=== PATIENT | male | born 2000 | race Two or more races ===

== ENCOUNTER 2020-07-07 12:06 | Emergency (ER) | payer SELFPAY ==
[~2020-07-07] VITALS: Ht 172.7 cm; Wt 79.5 kg
[2020-07-07 12:15] VITALS: BP 141/75
--- NOTE | 2020-07-07 12:41 | PHYS DOC ---
Past Medical History Past Medical History: Other Additional Past Medical Histor: COVID-/APR 2020 Past Surgical History: Other Additional Past Surgical Histo: LEFT HAND ORIF WITH REMOVAL OF HARDWARE Smoking Status: Never Smoker Alcohol Use: None Drug Use: None General Adult EDM: Chief Complaint: LACERATION/AVULSION HPI: HPI: Patient is a 19 year old male who presents with a right fifth finger laceration. Patient was working on a car in a school class when his hand slipped and he cut it on a sharp metal edge of an exhaust. Patient states he is up-to-date on his vaccines. Patient cleaned the wound for 2 minutes under running water before going to the nurses office at his school. The nurse then cleaned the wound under running water again. Pain is stated to be a 6 out of 10 with movement and 0 out of 10 with rest. Patient has no radiation of pain or associated symptoms. Review of Systems: Review of Systems: Constitutional: Denies fever or chills Eyes: Denies redness or eye pain HENT: Denies nasal congestion or sore throat Respiratory: Denies cough or shortness of breath Cardiovascular: Denies chest pain or palpitations GI: Denies abdominal pain, nausea, or vomiting : Denies dysuria or hematuria Musculoskeletal: Denies back pain or joint pain Integument: Denies rash or erythema. Neurologic: Denies headache, focal weakness or sensory changes Complete systems were reviewed and found to be within normal limits, except as documented in this note. Heart Score: C/O Chest Pain: N/A Family History: Family History: No pertinent family history. Allergies: Allergies: Allergies Coded Allergies Type Severity Reaction Last Updated Verified No Known Drug Allergies 05/01/14 No Physical Exam: PE: Constitutional: Well developed, well nourished, no acute distress, non-toxic appearance HENT: Normocephalic, atraumatic Eyes: PERRL, EOMI, conjunctiva normal, no discharge Neck: Normal range of motion, no tenderness, supple Lungs & Thorax: No respiratory distress, equal chest rise and fall. Covid-19 positive in April 2020. Abdomen: Soft, no tenderness Skin: Warm, dry, no erythema, no rash Back: No tenderness, no CVA tenderness Neurologic: Alert and oriented X 3, normal motor function, normal sensory function, no focal deficits noted Psychologic: Affect normal, judgment normal Extremities: Right fifth finger laceration on lateral aspect. 1.5 cm in length with 1 cm skin flap. Wound appears clean and edges can be approximated easily. Suture repair was performed (see procedure for details). Current Patient Data: Vital Signs: Vital Signs Date Time Temp Pulse Resp B/P (MAP) Pulse Ox O2 Delivery O2 Flow Rate FiO2 07/07/20 12:15 98.4 82 17 141/75 (97) 100 Room Air 98.4 Course & Med Decision Making: Course & Med Decision Making Patient is a 19 year old male who presents with a right fifth finger laceration. Patient was working on a car in a school class when his hand slipped and he cut it on a sharp metal edge of an exhaust. Patient states he is up-to-date on his vaccines including tetanus. Wound was clean and dressed with Steri-Strips upon arrival to the ED. Pain was well controlled. Dressing was taken down and wound was explored. It was recommended to apply stitches based on location and extent of wound. Patient agreed to undergo primary closure of wound. Wound was cleaned and sutures were applied to achieve good approximation (see procedure notes for details). Sterile dressing and aluminum finger splint was applied. Patient stable for discharge with outpatient follow-up with PCP. Discussed findings and plan (including wound care instructions) with patient and mother, who acknowledged understanding and agreement. [place] Disclaimer: [place] Disclaimer: This electronic medical record was generated, in whole or in part, using a voice recognition dictation system. Departure Departure Impression: Primary Impression: Finger laceration Qualified Codes: S61.216A - Laceration without foreign body of right little finger without damage to nail, initial encounter Disposition: 01 DC HOME SELF CARE/HOMELESS Condition: STABLE Referrals: REJI ROBERT (PCP) Patient Instructions: Laceration Care, Adult, [id number] Additional Instructions: Do not soak your wound. You may shower. Clean wound daily with soap and water. Change dressing 2 times daily. Use over the counter antibiotic ointment with each dressing change. Sutures need to be removed in 10 days. Present to your family doctor or local urgent care for removal. You may also present to the ED but it will be an additional visit/charge. Maintain finger splint to prevent sutures from breaking unless cleaning the wound. Use over the counter Tylenol and/or Ibuprofen for pain or discomfort. Laceration/Wound Repair Laceration/Wound Repair : Wound Location: upper extremity Wound's Depth, Shape: flap Wound Explored: no foreign body removed Betadine Prep?: No (chlorhexadine prep) Anesthesia: 1% Lidocaine (2% xylocaine with epi) Volume Anesthetic (ccs): 2 Wound Debrided: minimal Wound Repaired With: sutures Suture Size/Type: 4:0 Number of Sutures: 3 Layer Closure?: No Number Deep Layer Sutures: 0 Sterile Dressing Applied?: Yes Splint Applied?: Yes Type of Splint Applied: Aluminum finger splint Sling Applied?: No Progress Verbal consent obtained. Time out performed. Hand hygiene utilized. Wound clean ed with ChloraPrep. Anesthesia obtained via a 25-gauge hypodermic needle with 2.5 mL's of xylocaine 2% with epinephrine. Copious irrigation performed. Wound well approximated with 3 sutures. Patient tolerated procedure well and without difficulty. Empiric antibiotic ointment applied prior to sterile dressing and aluminum finger splint. JESSICA FARMER DO Jul 07, 2020 12:41
[2020-07-07] MEDS ORDERED: LIDOCAINE 2%/EPI 1:100,000 20 ML VIAL. INJ ONE (13:00)
[2020-07-07] MEDS ORDERED: NEOMY/BACITR/POLYMYXIN OINT PACKET. TP ONE (13:00)
== END 2020-07-07 14:29 | disposition home or self-care (01) ==
LOC: ER 12:06
DX: S61.216A Laceration without foreign body of right little finger without damage to nail, initial encounter (principal); Y28.8XXA Contact with other sharp object, undetermined intent, initial encounter; Y93.89 Activity, other specified; Y92.89 Other specified places as the place of occurrence of the external cause; Y99.8 Other external cause status
CPT/HCPCS: 12001; 99283; J3490